=== PATIENT | female | born 1995 | race African-American/Black ===

== ENCOUNTER 2017-07-08 13:24 | Emergency (ER) | payer OTHER ==
[~2017-07-08] VITALS: Ht 167.6 cm; Wt 89.4 kg
[~2017-07-08 13:24] MED LIST: BACL10TA PO; TRAM50TA2 PO
[2017-07-08 14:10] VITALS: BP 146/84
== END 2017-07-08 14:37 | disposition home or self-care (01) ==
LOC: ER 13:24
DX: M25.561 Pain in right knee (principal); M25.562 Pain in left knee; I10 Essential (primary) hypertension; E11.9 Type 2 diabetes mellitus without complications; F17.210 Nicotine dependence, cigarettes, uncomplicated; M54.5 Low back pain; Z79.899 Other long term (current) drug therapy; Z90.49 Acquired absence of other specified parts of digestive tract

== ENCOUNTER 2017-09-02 23:26 | Emergency (ER) | payer OTHER ==
[~2017-09-02] VITALS: Ht 167.6 cm; Wt 102.1 kg
[2017-09-02 23:42] VITALS: BP 130/83
[2017-09-03] MEDS ORDERED: traMADol HCL 50 MG TAB PO ONE (02:15)
== END 2017-09-03 02:39 | disposition home or self-care (01) ==
LOC: ER 23:28
DX: L02.412 Cutaneous abscess of left axilla (principal); E11.9 Type 2 diabetes mellitus without complications; I10 Essential (primary) hypertension; F17.210 Nicotine dependence, cigarettes, uncomplicated; Z90.89 Acquired absence of other organs

== ENCOUNTER 2017-09-06 22:08 | Emergency (ER) | payer OTHER ==
[~2017-09-06] VITALS: Ht 167.6 cm; Wt 100.2 kg
[2017-09-06 22:28] VITALS: BP 154/94
== END 2017-09-07 01:45 | disposition left against medical advice (07) ==
LOC: ER 22:08
DX: L02.414 Cutaneous abscess of left upper limb (principal); Z53.21 Procedure and treatment not carried out due to patient leaving prior to being seen by health care provider

== ENCOUNTER 2017-09-18 09:17 | Emergency (ER) | payer OTHER ==
[~2017-09-18] VITALS: Ht 167.6 cm; Wt 102.1 kg
[2017-09-18 09:57] LABS: Basophils # (auto) 0 uL; Basophils % (auto) 0.3 % (0.0-2.0); Eosinophils # (auto) 0 uL; Hematocrit 36.9 % (36.0-46.0); Lymphocytes # (auto) 1.1 uL; Lymphocytes % (auto) 25.2 % (10.0-50.0); Mean Corpuscular Hemoglobin 32.2 pg (28.0-32.0); Mean Corpuscular Hgb Conc. 35.2 g/dL (32.0-36.0); Mean Corpuscular Volume 91.6 fL (80.0-100.0); Mean Platelet Volume 7.6 fL (6.9-10.8); Monocytes # (auto) 0.3 uL; Monocytes % (auto) 7.2 % (0.0-12.0); Neutrophils % (auto) 66.3 % (37.0-80.0); Nucleated Red Blood Cells % 0.1 %; Platelet Count (auto) 220 10^3/uL (140-450); Red Cell Distribution Width 12.5 % (11.8-14.3); White Blood Cell 4.5 10^3/uL (4.4-10.8)
[2017-09-18] MEDS ORDERED: SODIUM CHLORIDE 0.9% 1,000 ML IV ONE (10:00)
[2017-09-18] MEDS ORDERED: ONDANSETRON HCL 4 MG/2 ML VIAL IV ONE (10:00)
[2017-09-18] MEDS ORDERED: PANTOPRAZOLE 40 MG/10 ML VIAL IV ONE (10:00)
[2017-09-18 10:18] LABS: Albumin 3.6 g/dL (3.4-5.0); BUN/Creatinine Ratio 18.2; Bilirubin, Total 0.6 mg/dL (0.2-1.0); Calcium 8.3 mg/dL (8.5-10.1); Potassium 3.5 mmol/L (3.5-5.1); Total Protein 7.4 g/dL (6.4-8.2)
[2017-09-18 11:40] LABS: Urine Bilirubin Negative (Negative); Urine Blood 2+ /uL (Negative); Urine Color Yellow (Yellow); Urine Glucose Normal (Normal); Urine Ketone Negative (Negative); Urine Mucus FEW (None Seen); Urine Nitrite Negative (Negative); Urine RBC 38 /hpf (0 - 4); Urine Squamous Epithelial Cell FEW /hpf (<5); Urine Urobilinogen Normal (Negative); Urine pH 6.5 (5.0-8.0)
[2017-09-18 12:41] VITALS: BP 148/74
== END 2017-09-18 13:44 | disposition home or self-care (01) ==
LOC: ER 09:17
DX: N39.0 Urinary tract infection, site not specified (principal); K59.00 Constipation, unspecified; F17.210 Nicotine dependence, cigarettes, uncomplicated; I10 Essential (primary) hypertension; Z88.6 Allergy status to analgesic agent
CPT/HCPCS: 36415; 80053; 81001; 81025; 85025; 96361; 96374; 96375; 99285; C9113; J2405

== ENCOUNTER 2018-08-31 13:04 | Emergency (ER) | payer MEDICAID ==
[~2018-08-31] VITALS: Ht 170.2 cm; Wt 122.9 kg
[2018-08-31 13:27] VITALS: BP 115/85
== END 2018-08-31 15:16 | disposition home or self-care (01) ==
LOC: ER 13:06
DX: O26.893 Other specified pregnancy related conditions, third trimester (principal); O16.3 Unspecified maternal hypertension, third trimester; R19.09 Other intra-abdominal and pelvic swelling, mass and lump; Z87.440 Personal history of urinary (tract) infections; Z3A.33 33 weeks gestation of pregnancy

== ENCOUNTER 2018-09-13 16:32 | Observation (INO) | payer MEDICAID ==
[~2018-09-13] VITALS: Ht 170.2 cm; Wt 122.0 kg
[2018-09-13] MEDS ORDERED: LACTATED RINGER'S 1,000 ML IV ONE (18:15)
[2018-09-13 19:23] LABS: Urine Bacteria FEW /hpf (None Seen); Urine Blood Negative /uL (Negative); Urine Specific Gravity 1.005 (1.001-1.035); Urine WBC 1 /hpf (0 - 5)
[2018-09-13 19:30] LABS: Alcohol, Urine < 3.0 mg/dL (0-5); Amphetamine Screen, Urine NEGATIVE (NEGATIVE); Barbiturate Scree,Urine NEGATIVE (NEGATIVE); Benzodiazephine Screen, Urine NEGATIVE (NEGATIVE); Cannabinoid Screen, Urine NEGATIVE (NEGATIVE); Cocaine Screen, Urine NEGATIVE (NEGATIVE); Opiate Scree,Urine NEGATIVE (NEGATIVE); Phencyclidine Screen, Urine NEGATIVE (NEGATIVE)
[2018-09-13] MEDS ORDERED: BETAMETHASONE ACET (6MG/ML) 5ML VIAL IM ONE (19:45)
[2018-09-13] MEDS ORDERED: PREN-96 PO (20:35)
== END 2018-09-13 21:00 | disposition home or self-care (01) | DRG 566 ==
LOC: LDRP 16:32 → MERGE 16:32 → LDRP 18:53
PROVIDERS: ADMIT Specialist; ATTEND Specialist
DX: O36.8130 Decreased fetal movements, third trimester, not applicable or unspecified (principal); Z3A.35 35 weeks gestation of pregnancy; Z87.891 Personal history of nicotine dependence
CPT/HCPCS: 59025; 76818; 80307; 81001; 81002; 96372; G0378; J0702; 96361; 96365; 96366

== ENCOUNTER 2018-09-14 19:29 | Observation (INO) | payer MEDICAID ==
[~2018-09-14] VITALS: Ht 1 cm; Wt 0.5 kg
[~2018-09-14 19:29] MED LIST changes: +PREN-96 PO
[2018-09-14] MEDS ORDERED: BETAMETHASONE ACET (6MG/ML) 5ML VIAL IM SCH (22:00)
== END 2018-09-14 21:07 | disposition home or self-care (01) | DRG 563 ==
LOC: LDRP 19:29
PROVIDERS: ADMIT Obstetrics & Gynecology; ATTEND Obstetrics & Gynecology
DX: O60.03 Preterm labor without delivery, third trimester (principal); Z3A.35 35 weeks gestation of pregnancy
CPT/HCPCS: 59025; 81002; 96372; G0378

== ENCOUNTER 2019-07-20 11:35 | Emergency (ER) | payer MEDICAID ==
[~2019-07-20] VITALS: Ht 167.6 cm; Wt 108.0 kg
[~2019-07-20 11:35] MED LIST changes: -BACL10TA PO; -TRAM50TA2 PO
[2019-07-20 12:10] VITALS: BP 135/87
== END 2019-07-20 16:35 | disposition left against medical advice (07) ==
LOC: ER 11:52
DX: R07.89 Other chest pain (principal); Z53.21 Procedure and treatment not carried out due to patient leaving prior to being seen by health care provider

== ENCOUNTER 2019-10-15 15:07 | Emergency (ER) | payer MEDICAID ==
[~2019-10-15] VITALS: Ht 167.6 cm; Wt 108.9 kg
[2019-10-15 15:55] LABS: Urine Bacteria FEW /hpf (None Seen); Urine Blood Negative /uL (Negative); Urine Mucus FEW (None Seen); Urine Specific Gravity 1.025 (1.001-1.035); Urine WBC 9 /hpf (0 - 5)
[2019-10-15 16:09] LABS: Basophils # (auto) 0 uL; Basophils % (auto) 0.2 % (0.0-2.0); Eosinophils # (auto) 0.1 uL; Eosinophils % (auto) 1.4 % (0.0-7.0); Hematocrit 37.1 % (36.0-46.0); Hemoglobin 12.7 g/dL (12.2-16.2); Lymphocytes # (auto) 2.1 uL; Lymphocytes % (auto) 38.9 % (10.0-50.0); Mean Corpuscular Hemoglobin 30.8 pg (28.0-32.0); Mean Corpuscular Hgb Conc. 34.3 g/dL (32.0-36.0); Mean Corpuscular Volume 89.9 fL (80.0-100.0); Monocytes # (auto) 0.2 uL; Neutrophils % (auto) 55.5 % (37.0-80.0); Nucleated Red Blood Cells % 0.1 %; Platelet Count (auto) 242 10^3/uL (140-450); Red Blood Cells 4.13 10^6/uL (4.0-5.20); White Blood Cell 5.5 10^3/uL (4.4-10.8)
[2019-10-15 16:23] LABS: Albumin 3.7 g/dL (3.4-5.0); Potassium 3.2 mmol/L (3.5-5.1)
[2019-10-15 16:29] LABS: Bilirubin, Total 0.5 mg/dL (0.2-1.0); Total Protein 7.8 g/dL (6.4-8.2)
[2019-10-15] MEDS ORDERED: POTASSIUM CHL 20 Meq TABLET PO ONE (21:30)
[2019-10-15 21:47] VITALS: BP 141/71
== END 2019-10-15 22:26 | disposition home or self-care (01) ==
LOC: ER 15:07
DX: O20.0 Threatened abortion (principal); O21.8 Other vomiting complicating pregnancy; O23.41 Unspecified infection of urinary tract in pregnancy, first trimester; Z3A.01 Less than 8 weeks gestation of pregnancy
CPT/HCPCS: 36415; 76801; 80053; 81001; 84702; 85025

== ENCOUNTER 2020-05-24 11:06 | Observation (INO) | payer MEDICAID ==
[2020-05-24 13:07] LABS: Basophils # (auto) 0 10 ^3/uL (0-0.2); Basophils % (auto) 0.2 % (0.0-2.0); Eosinophils # (auto) 0 10 ^3/uL (0-0.8); Eosinophils % (auto) 0.8 % (0.0-7.0); Hematocrit 33.9 % (36.0-46.0); Hemoglobin 11.7 g/dL (12.2-16.2); Lymphocytes # (auto) 1.3 10 ^3/uL (0.4-5.4); Lymphocytes % (auto) 25.5 % (10.0-50.0); Mean Corpuscular Hemoglobin 31.6 pg (28.0-32.0); Mean Corpuscular Hgb Conc. 34.5 g/dL (32.0-36.0); Mean Corpuscular Volume 91.4 fL (80.0-100.0); Monocytes # (auto) 0.3 10 ^3/uL (0-1.3); Monocytes % (auto) 4.9 % (0.0-12.0); Neutrophils # (auto) 3.6 10 ^3/uL (1.6-8.6); Neutrophils % (auto) 68.6 % (37.0-80.0); Nucleated Red Blood Cells % 0.2 %; Platelet Count (auto) 179 10^3/uL (140-450); Red Blood Cells 3.71 10^6/uL (4.0-5.20); Red Cell Distribution Width 13.6 % (11.8-14.3); White Blood Cell 5.2 10^3/uL (4.4-10.8)
[2020-05-24 13:24] LABS: Albumin 2.8 g/dL (3.4-5.0); Calcium 8.8 mg/dL (8.5-10.1); Potassium 3.4 mmol/L (3.5-5.1)
[2020-05-24 13:28] LABS: BUN/Creatinine Ratio 10.2; Bilirubin, Total 0.3 mg/dL (0.2-1.0); Total Protein 6.5 g/dL (6.4-8.2); Uric Acid 4.2 mg/dL (2.6-6.0)
[2020-05-24 13:31] LABS: INR 0.94 (0.9-1.15); Partial Thromboplastin Time 27.1 sec (23.0-31.2)
[2020-05-24 13:55] LABS: Urine Bacteria NONE SEEN /hpf (None Seen); Urine Blood TRACE /uL (Negative); Urine Mucus FEW (None Seen); Urine Specific Gravity 1.012 (1.001-1.035); Urine WBC 2 /hpf (0 - 5)
[2020-05-24 14:12] LABS: Protein, Urine 14.8 mg/dL (0.0-11.9)
== END 2020-05-24 15:10 | disposition home or self-care (01) ==
LOC: OB 11:06 → LDRP 11:40
PROVIDERS: ADMIT Specialist; ATTEND Specialist
DX: O13.3 Gestational [pregnancy-induced] hypertension without significant proteinuria, third trimester (principal); Z3A.37 37 weeks gestation of pregnancy
CPT/HCPCS: 36415; 59025; 76818; 80053; 81001; 82570; 84156; 84550; 85025; 85610; 85730; G0378

== ENCOUNTER 2020-05-25 19:00 | Observation (INO) | payer MEDICAID | END 2020-05-25 21:43 | disposition home or self-care (01) | LOC: LDRP 19:00 | PROVIDERS: ADMIT Specialist; ATTEND Specialist | DX: O13.3 Gestational [pregnancy-induced] hypertension without significant proteinuria, third trimester (principal); O40.3XX0 Polyhydramnios, third trimester, not applicable or unspecified; Z3A.37 37 weeks gestation of pregnancy | CPT/HCPCS: 59025; 76818; 81002; G0378 ==

== ENCOUNTER 2020-05-31 11:20 | Inpatient (IN) | payer MEDICAID ==
[2020-05-31] MEDS ORDERED: LACTATED RINGER'S 1,000 ML IV SCH (17:34)
[2020-05-31] MEDS ORDERED: LACT. RINGERS/OXYTOCIN 20UNITS 1,000 ML IV SCH (17:34)
[2020-05-31] MEDS ORDERED: DERMOPLAST 60ML BOTTLE TOP PRN (17:45)
[2020-05-31] MEDS ORDERED: LIDOCAINE 2%HCL (LOCAL ANESTH.) INJ 20ML MDV ID PRN (17:45)
[2020-05-31] MEDS ORDERED: WITCH HAZEL-GLYCERIN PAD TOP PRN (17:45)
[2020-05-31] MEDS ORDERED: PHISODERM TOP SOLN 240ML BTL TOP PRN (17:45)
[2020-05-31] MEDS ORDERED: METHYLERGONOVINE MALEATE 0.2 MG/ML AMP IM PRN (17:45)
[2020-05-31 18:49] LABS: Basophils # (auto) 0 10 ^3/uL (0-0.2); Basophils % (auto) 0.2 % (0.0-2.0); Eosinophils # (auto) 0 10 ^3/uL (0-0.8); Eosinophils % (auto) 0.8 % (0.0-7.0); Hematocrit 34.8 % (36.0-46.0); Hemoglobin 12.1 g/dL (12.2-16.2); Lymphocytes # (auto) 1.8 10 ^3/uL (0.4-5.4); Lymphocytes % (auto) 30.9 % (10.0-50.0); Mean Corpuscular Hemoglobin 32.3 pg (28.0-32.0); Mean Corpuscular Hgb Conc. 34.9 g/dL (32.0-36.0); Mean Corpuscular Volume 92.4 fL (80.0-100.0); Monocytes # (auto) 0.4 10 ^3/uL (0-1.3); Monocytes % (auto) 7.4 % (0.0-12.0); Neutrophils # (auto) 3.6 10 ^3/uL (1.6-8.6); Neutrophils % (auto) 60.7 % (37.0-80.0); Nucleated Red Blood Cells % 0.1 %; Platelet Count (auto) 178 10^3/uL (140-450); Red Blood Cells 3.76 10^6/uL (4.0-5.20); Red Cell Distribution Width 13.8 % (11.8-14.3); White Blood Cell 5.9 10^3/uL (4.4-10.8)
[2020-05-31 19:06] LABS: Albumin 2.9 g/dL (3.4-5.0); Calcium 8.7 mg/dL (8.5-10.1); Potassium 3.6 mmol/L (3.5-5.1); Uric Acid 3.9 mg/dL (2.6-6.0)
[2020-05-31 19:08] LABS: INR 0.96 (0.9-1.15); Partial Thromboplastin Time 26.5 sec (23.0-31.2)
[2020-05-31 19:09] LABS: Bilirubin, Total 0.3 mg/dL (0.2-1.0); Total Protein 6.6 g/dL (6.4-8.2)
[2020-06-02 05:06] LABS: RPR Non Reactive (Non Reactive)
== END 2020-05-31 20:45 | disposition home or self-care (01) | DRG 566 ==
LOC: OB 11:20 → LDRP 12:12 → OBSVTOIN 16:45 → LDRP 17:56
PROVIDERS: ADMIT Obstetrics & Gynecology; ATTEND Obstetrics & Gynecology
DX: O40.3XX0 Polyhydramnios, third trimester, not applicable or unspecified (principal); Z3A.38 38 weeks gestation of pregnancy
CPT/HCPCS: 36415; 59025; 76818; 80053; 81002; 84112; 84550; 85025; 85610; 85730; 86592; 86850; 86900; 86901; 96360; 96361; G0378

== ENCOUNTER 2020-06-01 19:54 | Observation (INO) | payer MEDICAID | END 2020-06-01 21:06 | disposition home or self-care (01) | LOC: LDRP 19:54 | PROVIDERS: ADMIT Specialist; ATTEND Specialist | DX: O40.3XX0 Polyhydramnios, third trimester, not applicable or unspecified (principal); O62.9 Abnormality of forces of labor, unspecified; Z3A.38 38 weeks gestation of pregnancy | CPT/HCPCS: 59025; 81002; G0378 ==

== ENCOUNTER 2020-06-03 11:00 | Observation (INO) | payer MEDICAID ==
[2020-06-03 13:21] LABS: Basophils # (auto) 0 10 ^3/uL (0-0.2); Basophils % (auto) 0.3 % (0.0-2.0); Eosinophils # (auto) 0 10 ^3/uL (0-0.8); Eosinophils % (auto) 0.6 % (0.0-7.0); Hematocrit 34.2 % (36.0-46.0); Hemoglobin 11.7 g/dL (12.2-16.2); Lymphocytes # (auto) 1.3 10 ^3/uL (0.4-5.4); Lymphocytes % (auto) 22.2 % (10.0-50.0); Mean Corpuscular Hemoglobin 31.5 pg (28.0-32.0); Mean Corpuscular Hgb Conc. 34.2 g/dL (32.0-36.0); Mean Corpuscular Volume 92.2 fL (80.0-100.0); Monocytes # (auto) 0.4 10 ^3/uL (0-1.3); Monocytes % (auto) 6.4 % (0.0-12.0); Neutrophils % (auto) 70.5 % (37.0-80.0); Platelet Count (auto) 179 10^3/uL (140-450); Red Blood Cells 3.71 10^6/uL (4.0-5.20); Red Cell Distribution Width 13.7 % (11.8-14.3); White Blood Cell 5.7 10^3/uL (4.4-10.8)
[2020-06-03 13:35] LABS: Potassium 3.8 mmol/L (3.5-5.1)
[2020-06-03 13:37] LABS: INR 0.95 (0.9-1.15); Partial Thromboplastin Time 26.6 sec (23.0-31.2)
[2020-06-03 13:43] LABS: Albumin 2.7 g/dL (3.4-5.0); BUN/Creatinine Ratio 9.2; Bilirubin, Total 0.2 mg/dL (0.2-1.0); Calcium 8.8 mg/dL (8.5-10.1); Total Protein 6.3 g/dL (6.4-8.2); Uric Acid 3.8 mg/dL (2.6-6.0)
[2020-06-03 13:44] LABS: Urine Bacteria FEW /hpf (None Seen); Urine Blood 1+ /uL (Negative); Urine Hyaline Cast FEW /lpf (0 - 2); Urine Mucus FEW (None Seen); Urine Specific Gravity 1.014 (1.001-1.035); Urine WBC 146 /hpf (0 - 5)
== END 2020-06-03 16:00 | disposition home or self-care (01) ==
LOC: LDRP 11:00
PROVIDERS: ADMIT Specialist; ATTEND Specialist
DX: O40.3XX0 Polyhydramnios, third trimester, not applicable or unspecified (principal); O13.3 Gestational [pregnancy-induced] hypertension without significant proteinuria, third trimester; Z3A.38 38 weeks gestation of pregnancy
CPT/HCPCS: 36415; 59025; 76818; 80053; 81001; 81002; 84550; 85025; 85610; 85730; G0378

== ENCOUNTER 2020-06-07 11:09 | Observation (INO) | payer MEDICAID | END 2020-06-07 16:05 | disposition home or self-care (01) | LOC: XYW 11:09 → LDRP 13:37 | PROVIDERS: ADMIT Obstetrics & Gynecology; ATTEND Obstetrics & Gynecology | DX: O40.3XX0 Polyhydramnios, third trimester, not applicable or unspecified (principal); O12.23 Gestational edema with proteinuria, third trimester; O99.323 Drug use complicating pregnancy, third trimester; F12.90 Cannabis use, unspecified, uncomplicated; Z3A.39 39 weeks gestation of pregnancy | CPT/HCPCS: 59025; 76818; 81002; G0378 ==

== ENCOUNTER 2020-06-09 18:55 | Observation (INO) | payer MEDICAID | END 2020-06-09 22:22 | disposition home or self-care (01) | LOC: LDRP 18:55 | PROVIDERS: ADMIT Obstetrics & Gynecology; ATTEND Obstetrics & Gynecology | DX: O40.3XX0 Polyhydramnios, third trimester, not applicable or unspecified (principal); O62.9 Abnormality of forces of labor, unspecified; Z3A.39 39 weeks gestation of pregnancy | CPT/HCPCS: 59025; 76818; 81002; G0378 ==

== ENCOUNTER 2020-06-14 02:10 | Inpatient (IN) | payer MEDICAID ==
[~2020-06-14] VITALS: Ht 167.6 cm; Wt 118.4 kg
[2020-06-14] MEDS ORDERED: LACT. RINGERS/OXYTOCIN 20UNITS 1,000 ML IV SCH (02:43)
[2020-06-14] MEDS ORDERED: LACTATED RINGER'S 1,000 ML IV SCH (02:43)
[2020-06-14] MEDS ORDERED: LIDOCAINE 2%HCL (LOCAL ANESTH.) INJ 20ML MDV IJ ONE (02:45)
[2020-06-14] MEDS ORDERED: METHYLERGONOVINE MALEATE 0.2 MG/ML AMP IM PRN (02:45)
[2020-06-14] MEDS ORDERED: CARBOPROST TROMETHAMINE 250 MCG/1ML VIAL IM PRN (02:45)
[2020-06-14] MEDS ORDERED: WITCH HAZEL-GLYCERIN PAD TOP PRN (02:45)
[2020-06-14] MEDS ORDERED: PHISODERM TOP SOLN 240ML BTL TOP PRN (02:45)
[2020-06-14] MEDS ORDERED: DERMOPLAST 60ML BOTTLE TOP PRN (02:45)
[2020-06-14 04:05] LABS: Basophils # (auto) 0 10 ^3/uL (0-0.2); Basophils % (auto) 0.2 % (0.0-2.0); Eosinophils # (auto) 0 10 ^3/uL (0-0.8); Eosinophils % (auto) 0.8 % (0.0-7.0); Hematocrit 34.6 % (36.0-46.0); Hemoglobin 11.8 g/dL (12.2-16.2); Lymphocytes # (auto) 1.9 10 ^3/uL (0.4-5.4); Mean Corpuscular Hemoglobin 31.7 pg (28.0-32.0); Mean Corpuscular Hgb Conc. 34.1 g/dL (32.0-36.0); Mean Corpuscular Volume 93.1 fL (80.0-100.0); Monocytes # (auto) 0.5 10 ^3/uL (0-1.3); Monocytes % (auto) 8.3 % (0.0-12.0); Neutrophils # (auto) 3.4 10 ^3/uL (1.6-8.6); Neutrophils % (auto) 58.7 % (37.0-80.0); Platelet Count (auto) 178 10^3/uL (140-450); Red Blood Cells 3.72 10^6/uL (4.0-5.20); Red Cell Distribution Width 14.3 % (11.8-14.3); White Blood Cell 5.8 10^3/uL (4.4-10.8)
[2020-06-14 04:10] LABS: Urine Bacteria FEW /hpf (None Seen); Urine Blood TRACE /uL (Negative); Urine Specific Gravity 1.008 (1.001-1.035); Urine Sperm PRESENT /hpf (None Seen); Urine WBC 8 /hpf (0 - 5)
[2020-06-14 04:22] LABS: Albumin 2.6 g/dL (3.4-5.0); Calcium 8.9 mg/dL (8.5-10.1); INR 0.95 (0.9-1.15); Partial Thromboplastin Time 27.3 sec (23.0-31.2); Potassium 3.5 mmol/L (3.5-5.1)
[2020-06-14 04:25] LABS: BUN/Creatinine Ratio 10.2; Bilirubin, Total 0.3 mg/dL (0.2-1.0); Total Protein 6.2 g/dL (6.4-8.2)
[2020-06-14 04:34] LABS: Alcohol, Urine < 3.0 mg/dL (0-10); Amphetamine Screen, Urine NEGATIVE (NEGATIVE); Barbiturate Scree,Urine NEGATIVE (NEGATIVE); Benzodiazephine Screen, Urine NEGATIVE (NEGATIVE); Cannabinoid Screen, Urine NEGATIVE (NEGATIVE); Cocaine Screen, Urine NEGATIVE (NEGATIVE); Opiate Scree,Urine NEGATIVE (NEGATIVE); Phencyclidine Screen, Urine NEGATIVE (NEGATIVE)
--- NOTE | 2020-06-14 08:00 | NUR ---
Teaching: Reviewed information in [facility] booklet with patient. Discussed benefits of and risks associated with not . Discussed different positions, proper latch, feeding cues, and baby-led . Provided information of medication side effects related to . All questions and concerns addressed at this time. Patient verbalized understanding of information.
[2020-06-14] MEDS: IBUPROFEN 600 MG TAB PO PRN ×4 (08:42→22:20)
--- NOTE | 2020-06-14 09:25 | NUR ---
Ambulation: Patient OOB with standby assistance by RN. Patient ambulated to bathroom with steady gait. Patient able to void without difficulty. Patient showered. [facility] teaching provided with returned demonstration by patient. Clean gown provided and bed linen changed. Patient ambulated back to bed with steady gait and no distress noted.
[2020-06-14 11:13] VITALS: BP 123/59
[2020-06-14 15:00] VITALS: BP 110/50
[2020-06-14 19:03] VITALS: BP 103/54
--- NOTE | 2020-06-14 21:20 | NUR ---
This RN spoke with Sydney TIMMONS in regard to pt questioning whether or not to finish her antibiotic prescription for her pervious UTI. Orders received to instruct the pt on how to give a clean catch mid stream urine sample and to send to lab for culture. Will carry out.
--- NOTE | 2020-06-14 21:25 | NUR ---
This RN instructs pt on how to give a clean catch mid stream urine sample. Urine collection cup provided to pt. Pt verbalized understanding and will notify RN when urine has been obtained.
[2020-06-14 23:00] VITALS: BP 104/51
[2020-06-15 03:00] VITALS: BP 95/50
[2020-06-15] MEDS: IBUPROFEN 600 MG TAB PO PRN ×5 (03:16→22:39)
[2020-06-15 05:10] LABS: RPR Non Reactive (Non Reactive)
[2020-06-15 07:00] VITALS: BP 99/65
[2020-06-15 11:00] VITALS: BP 93/46
[2020-06-15 15:00] VITALS: BP 98/52
--- NOTE | 2020-06-15 15:40 | NUR ---
Saline lock removed, catheter in tact. No signs or symptoms of infection noted. Clean dressing applied over site.
[2020-06-15 19:00] VITALS: BP 92/54
--- NOTE | 2020-06-15 22:30 | NUR ---
Pt up to bathroom and put on emergency call light, c/o passing a large clot and bleeding very heavy, assisted pt with pericare and pads changed. Assisted pt back to bed, fundal massage done, fundus firm at 2 below the umbilicus, lochia small. Pt was offered pain meds. Addendum: 06/16/20 at 0017 by HELIO OREILLY RN RN Amended: Links added.
[2020-06-15 23:00] VITALS: BP 95/51
[2020-06-16 03:00] VITALS: BP 108/65
[2020-06-16] MEDS ORDERED: ACETAMINOPHEN 325 MG TAB PO PRN (03:15)
[2020-06-16 07:00] VITALS: BP 119/56
--- NOTE | 2020-06-16 09:21 | NUR ---
Discharge: Discharge instructions given as ordered. Maternal Mental Health and "To save a Life" [facility] sheet provided. Pt encouraged to follow up with [facility] as instructed. All questions and concerns addressed. Patient verbalized understanding. Medication reconciliation completed and copy given to patient. All required/requested vaccines given and copies of vaccinations given to patient. Patient encouraged to prepare to depart unit.
--- NOTE | 2020-06-16 10:04 | NUR ---
Patient states that because has epilepsy and he is unable to drive her home, has not other resource for transportation. Notified Dr Khalil when she arrived on unit that patients car is here at hospital and that she lives in [place]. Dr Khalil said patient is able to drive herself home.
[2020-06-16 11:00] VITALS: BP 113/58
--- NOTE | 2020-06-16 11:45 | NUR ---
Discharge: Patient ambulated to vehicle with all personal belongings, accompanied by staff and family member. No distress noted at time of departure, no adverse changes in status since initial assessment.
== END 2020-06-16 11:45 | disposition home or self-care (01) | DRG 560 ==
LOC: INTOOBSV 02:10 → LDRP 02:10 → OBSVTOIN 02:10 → LDRP 03:33
PROVIDERS: ADMIT Obstetrics & Gynecology; ATTEND Obstetrics & Gynecology
PROC: 10E0XZZ Delivery of Products of Conception, External Approach (ICD-10-PCS; principal; 2020-06-14)
DX: O99.214 Obesity complicating childbirth (principal); O40.3XX0 Polyhydramnios, third trimester, not applicable or unspecified; Z3A.40 40 weeks gestation of pregnancy; E66.9 Obesity, unspecified; Z37.0 Single live birth; Z83.3 Family history of diabetes mellitus; Z82.49 Family history of ischemic heart disease and other diseases of the circulatory system
CPT/HCPCS: 36415; 59025; 59409; 80053; 80307; 81001; 84112; 85025; 85610; 85730; 86592; 86850; 86900; 86901; 87086; 96360; 96361; 96365; 96372; G0378; J2590